=== PATIENT | female | born 1990 | race Caucasian/White ===

== ENCOUNTER 2024-02-26 15:23 | Inpatient (IN) ==
--- NOTE | 2024-02-26 16:10 | ED.ABDFE ---
HPI Time Seen Time Seen by Provider: 02/26/24 15:30 PCP Primary Care Physician: NFD Complaint Doctors Chief Complaint Comments: 33-year-old female presents for evaluation. Patient seen here in the ER yesterday for abdominal pain, worked up & treated by me. Patient was discharged yesterday afternoon, sent home with Carafate and Zofran, did well initially. Was up most of the night with diarrhea. Started Imodium today. Diarrhea remains black/green. Denies recent use of nonsteroidal medications. No history of peptic ulcer disease. Patient does not drink alcohol. Pain worsened today. Sharp pain across the upper abdomen, severe at times. Does not radiate. Nothing makes it better, nothing makes it worse.. Feeling somewhat dizzy, lightheaded. Has had previous cholecystectomy and a tubal ligation. Chief Complaint:: Pt c/o 3 days of intermittent pain across the upper abdomen described as sharp stabbing in nature. No alleviating or exacerbating factors noted. Pain is associated wtih nausea, vomiting, and diarrhea. Pt states that today the pain has been worse and is now like a tight squeezing band all the amarjit und her abdomen and back. Self Treatment fo Chief Complaint: Pt was seen in ED yesterday and was discharged home with Zofran, Carafate and Potassium which has not improved symp toms. COVID-19 Coronavirus risk:travel/contact w/high risk person: No Has patient experienced Coronavirus symptoms: No Reviewed Nurses Notes Review: Yes Source History Provided: Patient Mode of arrival Mode of Arrival: Ambulatory Timing Onset of Chief Complaint: 02/24/24 PMH PMH Past Medical History: No Past Surgical History: Yes Surgical History: Cholecystectomy Past Surgical History Comment: tubal ligation Family History History of Family Medical Conditions: Yes Family Medical History: Diabetes Mellitus and Cancer Social History Does patient currently use any type of tobacco product: No Have you used tobacco products in the last 12 months: No Type of Tobacco Use: None Does any household member use tobacco: No Alcohol Use: None Do you use any recreational Drugs:: No Lives With: Family Lives Where: Home Travel Risk Coronavirus risk:travel/contact w/high risk person: No Has patient experienced Coronavirus symptoms: No Infectious screening In the last 2 months have you had wt loss of >10#?: NO Have you had fever, night sweats or hemotysis?: No Have you traveled outside the country in the last 6 months?: No Isolation: Standard ROS Review of Systems Constitutional: Malaise and Weakness Eyes: No Symptoms Reported ENTM: No Symptoms Reported Respiratoy: No Symptoms Reported Cardiovascular: No Symptoms Reported Gastrointestinal/Abdominal: See HPI Genitourinary: No Symptoms Reported Neurological: Weakness Musculoskeletal: No Symptoms Reported Integumentary: No Symptoms Reported Psychiatric: No Symptoms Reported All Other Systems: Reviewed and Negative PE Vital Signs Vitals: Vital Signs Temperature 98.9 F Pulse Rate 94 Pulse Rate 98 Respiratory Rate 25 Respiratory Rate 20 Respiratory Rate 22 Blood Pressure 113/63 O2 Sat by Pulse Oximetry 96 General General Appearance: Alert and Other (Appears uncomfortable) Eyes Eye exam: PERRL and EOMI ENT ENT Exam: Mucous Membranes Moist Neck Neck Exam: Normal Inspection Respiratory Respiratory Exam: Normal Lung Sounds Bilat; negative Accessory Muscle Use or Respiratory Distress Cardiovascular Cardiovascular Exam: Regular Rate, Normal Rhythm and Normal Heart Sounds Abdominal Exam Abdominal Exam: Normal Bowel Sounds, Soft and Tenderness (Epigastric region greater than right upper quadrant/left upper quadrant. Has guarding associated with it.) Back Back Exam: Normal Inspection Extremeties Extremities Exam: Normal Inspection and Other (Good distal pulses of lower extremities.); negative Edema Neurologic Neurological Exam: Alert, Oriented X3 and CN II-XII Intact; negative Motor Sensory Deficit Skin Skin Exam: Warm and Dry COURSE Treatment Treatment: 33-year-old female with 4 days of nausea, vomiting, diarrhea. Was seen and treated here yesterday. Worsened this afternoon. Workup initiated. Patient given IV fluids, IV morphine/Zofran. Pt doing better, still with some epigastric discomfort. Labs show potassium be lower than yesterday, down to 2.5. Patient given IV fluids with potassium. CT scan of the abdomen pelvis performed. Radiologist question some right-sided colitis. Patient hurting mostly in the epigastric region. Requested a stool sample from the patient to look out for blood, stool culture, H. pylori. Recommend admitting patient for further control of her pain and potassium replacement. Presented to on-call physician, Dr. Bellamy, accepts the admission. Will consult with general surger y, Dr. Mendoza, for possible EGD tomorrow. Give clear fluids now, will keep n.p.o. after midnight. ROR Labs Reviewed Laboratory Results Reviewed?: Yes 02/26/24 15:55 02/26/24 15:55 Laboratory: WBC 9.0 X10^3/uL (3.6-10.0) 02/26/24 15:55 RBC 4.26 X10^6/uL (3.5-5.4) 02/26/24 15:55 Hgb 13.0 g/dL (12.0-16.0) 02/26/24 15:55 Hct 37.6 % (36.0-47.0) 02/26/24 15:55 MCV 88.5 fL (80.0-100.0) 02/26/24 15:55 MCH 30.4 pg (27.0-34.0) 02/26/24 15:55 MCHC 34.4 g/dL (33.0-35.0) 02/26/24 15:55 RDW 13.2 % (11.6-16.5) 02/26/24 15:55 Plt Count 213 X10^3/uL (150.0-450.0) 02/26/24 15:55 Plt Count Comment Adequate (ADEQUATE) 02/26/24 15:55 MPV 9.6 fL (7.4-11.0) 02/26/24 15:55 Neut % (Auto) 92.6 % (42.0-75.0) H 02/26/24 15:55 Lymph % (Auto) 4.6 % (21.0-51.0) L 02/26/24 15:55 [place] % (Auto) 2.2 % (0.0-13.0) 02/26/24 15:55 Eos % (Auto) 0.0 % (0.9-2.9) L 02/26/24 15:55 Baso % (Auto) 0.6 % (0.2-1.0) 02/26/24 15:55 Neut # (Auto) 8.3 x10^3/uL (2.2-4.8) H 02/26/24 15:55 Lymph # (Auto) 0.4 X10^3/uL (1.3-2.9) L 02/26/24 15:55 [place] # (Auto) 0.2 x10^3/uL (0.3-0.8) L 02/26/24 15:55 Eos # (Auto) 0.0 x10^3/uL (0.0-0.2) 02/26/24 15:55 Baso # (Auto) 0.1 X10^3/uL (0.0-0.1) 02/26/24 15:55 Absolute Nucleated RBC 0.0 /100WBC 02/26/24 15:55 Total Counted 100 02/26/24 15:55 Neutrophils % (Manual) 96 % (39-76) H 02/26/24 15:55 Lymphocytes % (Manual) 3 % (13-43) L 02/26/24 15:55 Monocytes % (Manual) 1 % (4-9) L 02/26/24 15:55 Plt Morphology Comment Normal (NORMAL) 02/26/24 15:55 RBC Morphology Normal (NORMAL) 02/26/24 15:55 Sodium 136 mmol/L (136-145) 02/26/24 15:55 Corrected Sodium TNP 02/26/24 15:55 Potassium 2.5 mmol/L (3.5-5.1) L* 02/26/24 15:55 Chloride 100 mmol/L (98-107) 02/26/24 15:55 Carbon Dioxide 21.1 mmol/L (21-32) 02/26/24 15:55 BUN 10 mg/dL (7-18) 02/26/24 15:55 Creatinine 0.79 mg/dL (0.55-1.02) 02/26/24 15:55 Est GFR (MDRD) Af Amer > 60 (>60) 02/26/24 15:55 Est GFR (MDRD) Non-Af > 60 (>60) 02/26/24 15:55 Glucose 99 mg/dL (65-99) 02/26/24 15:55 Calcium 8.8 mg/dL (8.5-10.1) 02/26/24 15:55 Corrected Calcium TNP 02/26/24 15:55 Total Bilirubin 0.70 mg/dL (0.2-1.0) 02/26/24 15:55 AST 28 Units/L (15-37) 02/26/24 15:55 ALT 30 Units/L (12-78) 02/26/24 15:55 Alkaline Phosphatase 66 Units/L (46-116) 02/26/24 15:55 Total Protein 7.3 g/dL (6.4-8.2) 02/26/24 15:55 Albumin 3.8 g/dL (3.4-5.0) 02/26/24 15:55 Globulin 3.5 g/dL (2.5-4.5) 02/26/24 15:55 Albumin/Globulin Ratio 1.1 Ratio (1.1-2.1) 02/26/24 15:55 Lipase 21 Units/L (16-77) 02/26/24 15:55 HCG, Qual Negative <10 mIU/mL 02/26/24 15:55 Potassium 2.5 XRAY XRAY Interpreted by: Radiologist X-ray Results: EXAM: ABDOMEN/PELVIS W/O CON HISTORY: upper abd pain, nausea, vomiting; COMPARISON: None. TECHNIQUE: Nonenhanced spiral CT imaging was performed through the abdomen and pelvis and axial, coronal, and sagittal CT images were generated. FINDINGS: The lung bases are clear without effusion. The heart size is normal. The liver is normal. The gallbladder has been removed. The pancreas, spleen, adrenal glands are normal. The kidneys are normal in size. There is no stone or hydronephrosis on either side. Urinary bladder is grossly unremarkable. The uterus is normal. Left ovary is normal. There appears to be a roughly 1.6 cm cyst in the right ovary. Stomach is grossly normal. Small bowel loops are normal. There is non-specific wall thickening of the right colon. There are non-specific radiodensities in the right side of the pelvis possibly in the cecum. Remainder of the colon is unremarkable. There is some trace free fluid in the pelvis. Bones are unremarkable. IMPRESSION: 1. Non-specific wall thickening in the cecum and right colon possibly due to colitis. 2. Non-specific radiodensity in the pelvis on the right side possibly within the cecum. If there is ongoing clinical concern, consider a follow-up CT scan with oral and IV contrast. THIS IS AN ELECTRONICALLY VERIFIED FINAL REPORT 02/26/2024 5:39 PM - Electronically signed by Chico Almeida MD Opioid Opioid Risk Tool Age ([place] box if 16-45): Yes History of Preadolescent Sexual Abuse: No Total: 1 Total Score Risk Category: Low Risk Copyright: Trell BERGMAN predicting aberrant behaviors Discharge Plan Diagnosis Discharge Problem: Acute hypokalemia, Gastroenteritis, Acute epigastric pain Discharge Plan Patient Disposition: 09 ADMITTED INPATIENT Condition: Stable Prescriptions: No Action ondansetron 4 mg tablet,disintegrating 4 mg translingual Q6H PRN (Reason: nausea and vomiting) 2 Days Qty: 8 1RF sucralfate 1 gram tablet 1 g PO QID 3 Days Qty: 12 0RF potassium chloride 20 mEq tablet extended release 20 meq PO BID 3 Days Qty: 6 0RF Health Concerns: Post Hospitalization: new medications and changes needed to prevent readmission or further decline. Pt educated and given instructions on all concerns. Plan of Treatment: Continue with present treatment and follow up plan. Pt is to keep follow up appointment as instructed and take medications as ordered. Orders to Discharge Patient Discharge Orders: Transfer (Routine); Ordered 02/26/24 Ordered By: Johnny De Oliveira Follow ups/Referrals Follow ups/Referrals: NFD,None [Primary Care Provider] - 3 days
[2024-02-26 16:33] LABS: BASOPHILS # (AUTO) 0.1 X10^3/uL (0.0-0.1); BASOPHILS % (AUTO) 0.6 % (0.2-1.0); HEMATOCRIT 37.6 % (36.0-47.0); LYMPHOCYTES # (AUTO) 0.4 X10^3/uL (1.3-2.9); LYMPHOCYTES % (AUTO) 4.6 % (21.0-51.0); MEAN CORPUSCULAR HEMOGLOBIN 30.4 pg (27.0-34.0); MEAN CORPUSCULAR HGB CONC 34.4 g/dL (33.0-35.0); MEAN CORPUSCULAR VOLUME 88.5 fL (80.0-100.0); MEAN PLATELET VOLUME 9.6 fL (7.4-11.0); MONOCYTES # (AUTO) 0.2 x10^3/uL (0.3-0.8); MONOCYTES % (AUTO) 2.2 % (0.0-13.0); NEUTROPHILS # (AUTO) 8.3 x10^3/uL (2.2-4.8); NEUTROPHILS % (AUTO) 92.6 % (42.0-75.0); PLATELET COUNT 213 X10^3/uL (150.0-450.0); RED BLOOD COUNT 4.26 X10^6/uL (3.5-5.4); RED CELL DISTRIBUTION WIDTH 13.2 % (11.6-16.5)
[2024-02-26] MEDS: MORPHINE SULFATE INJ 4 MG IVP ONE (16:38)
[2024-02-26] MEDS: ZOFRAN INJ 4 MG VIAL IVP ONE (16:39)
[2024-02-26] MEDS: NS 1,000 ML IV 1,000 ML IV ONE (16:39)
[2024-02-26 16:47] LABS: ALANINE AMINOTRANSFERASE 30 Units/L (12-78); ALBUMIN 3.8 g/dL (3.4-5.0); ALKALINE PHOSPHATASE 66 Units/L (46-116); ASPARTATE AMINO TRANSFERASE 28 Units/L (15-37); BLOOD UREA NITROGEN 10 mg/dL (7-18); CALCIUM 8.8 mg/dL (8.5-10.1); CARBON DIOXIDE 21.1 mmol/L (21-32); CHLORIDE 100 mmol/L (98-107); CREATININE 0.79 mg/dL (0.55-1.02); GLUCOSE 99 mg/dL (65-99); LIPASE 21 Units/L (16-77); SERUM PREGNANCY TEST, QUAL NEGATIVE <10 mIU/mL; SODIUM 136 mmol/L (136-145); TOTAL PROTEIN 7.3 g/dL (6.4-8.2); eGFR NON BLACK RACES > 60 (>60)
[2024-02-26 16:48] LABS: POTASSIUM 2.5 mmol/L (3.5-5.1)
[2024-02-26 17:42] LABS: PLATELET MORPHOLOGY COMMENT NORMAL (NORMAL)
--- NOTE | 2024-02-26 17:43 | CT ---
EXAM:ABDOMEN/PELVIS W/O CONHISTORY:upper abd pain, nausea, vomiting;COMPARISON:None.TECHNIQUE:Nonen hanced spiral CT imaging was performed through the abdomen and pelvis and axial, coronal, and sagittal CT images were generated.FINDINGS:The lung bases are clear without effusion. The heart size is normal. The liver is normal. The gallbladder has been removed. The pancreas, spleen, adrenal glands are normal. The kidneys are normal in size. There is no stone or hydronephrosis on either side. Urinary bladder is grossly unremarkable. The uterus is normal. Left ovary is normal. There appears to be a roughly 1.6 cm cyst in the right ovary. Stomach is grossly normal. Small bowel loops are normal. There is non-specific wall thickening of the right colon. There are non-specific radiodensities in the right side of the pelvis possibly in the cecum. Remainder of the colon is unremarkable. There is some trace free fluid in the pelvis. Bones are unremarkable.IMPRESSION:1. Non-specific wall thickening in the cecum and right colon possibly due to colitis.2. Non-specific radiodensity in the pelvis on the right side possibly within the cecum. If there is ongoing clinical concern, consider a follow-up CT scan with oral and IV contrast.THIS IS AN ELECTRONICALLY VERIFIED FINAL REPORT02/26/2024 5:39 PM - Electronically signed by Chico Almeida MD
[2024-02-26] MEDS ORDERED: NS + KCL 20 MEQ/L 1,000 ML IV ONE (17:57)
[2024-02-26] MEDS: NS + KCL 20 MEQ/L 1,000 ML IV ONE (18:03)
[2024-02-26] MEDS ORDERED: CONSULT PHARMACY - POTASSIUM & MAGNESIUM XX SCH (20:21)
[2024-02-26] MEDS ORDERED: ZOFRAN INJ 4 MG VIAL IVP PRN (20:21)
[2024-02-26] MEDS ORDERED: MORPHINE SULFATE INJ 4 MG IVP PRN (20:21)
[2024-02-26] MEDS: NS 250 ML IV 250 ML IV ONE (21:30)
[2024-02-26 21:43] LABS: BILIRUBIN,URINE NEGATIVE (NEGATIVE); BLOOD/HEMOGLOBIN,URINE 1+ (NEGATIVE); GLUCOSE, URINE NEGATIVE (NEGATIVE); KETONES,URINE 3+ (NEGATIVE); LEUKOCYTE ESTERASE ,URINE 1+ (NEGATIVE); NITRITES,URINE NEGATIVE (NEGATIVE); PROTEIN,URINE 2+ (NEGATIVE); UROBILINOGEN,URINE NORMAL (NORMAL)
[2024-02-26 21:47] LABS: APPEARANCE,URINE SLIGHTLY HAZY (CLEAR); BACTERIA,URINE TRACE /HPF (NEGATIVE); COLOR,URINE AMBER (YELLOW); HYALINE CASTS, URINE FEW /LPF (NEGATIVE); SQUAMOUS EPITHELIAL CELL,UR FEW /HPF (NEGATIVE)
[2024-02-26] MEDS: MAGNESIUM SULFATE 1 GRAM/100 mL PREMIX 1 G/100 ML BAG IV SCH (21:56)
[2024-02-26 22:26] VITALS: BMI 22.1
[2024-02-26] MEDS: K-RIDER 10 MEQ/100 ML WATER 10 MEQ/100 ML BAG IV SCH (23:02)
[2024-02-27] MEDS: TYLENOL 325 MG TAB PO PRN (00:05)
[2024-02-27 06:08] LABS: BASOPHILS % (AUTO) 0.4 % (0.2-1.0); EOSINOPHILS % (AUTO) 0.1 % (0.9-2.9); HEMATOCRIT 32.3 % (36.0-47.0); HEMOGLOBIN 11.1 g/dL (12.0-16.0); LYMPHOCYTES # (AUTO) 0.6 X10^3/uL (1.3-2.9); LYMPHOCYTES % (AUTO) 9.6 % (21.0-51.0); MEAN CORPUSCULAR HEMOGLOBIN 30.8 pg (27.0-34.0); MEAN CORPUSCULAR HGB CONC 34.5 g/dL (33.0-35.0); MEAN CORPUSCULAR VOLUME 89.3 fL (80.0-100.0); MEAN PLATELET VOLUME 9.7 fL (7.4-11.0); MONOCYTES # (AUTO) 0.4 x10^3/uL (0.3-0.8); MONOCYTES % (AUTO) 5.7 % (0.0-13.0); NEUTROPHILS # (AUTO) 5.3 x10^3/uL (2.2-4.8); NEUTROPHILS % (AUTO) 84.2 % (42.0-75.0); PLATELET COUNT 184 X10^3/uL (150.0-450.0); RED BLOOD COUNT 3.62 X10^6/uL (3.5-5.4); WHITE BLOOD COUNT 6.4 X10^3/uL (3.6-10.0)
[2024-02-27 06:29] LABS: ALANINE AMINOTRANSFERASE 143 Units/L (12-78); ALBUMIN 2.9 g/dL (3.4-5.0); ALKALINE PHOSPHATASE 94 Units/L (46-116); ASPARTATE AMINO TRANSFERASE 155 Units/L (15-37); BLOOD UREA NITROGEN 7 mg/dL (7-18); CALCIUM 7.5 mg/dL (8.5-10.1); CARBON DIOXIDE 22.4 mmol/L (21-32); CHLORIDE 104 mmol/L (98-107); COR CA(FOR HYPOALB) 8.4 mg/dL (8.5-10.1); GLUCOSE 101 mg/dL (65-99); MAGNESIUM 2.4 mg/dL (2.0-2.9); SODIUM 137 mmol/L (136-145); TOTAL PROTEIN 5.8 g/dL (6.4-8.2); eGFR NON BLACK RACES > 60 (>60)
[2024-02-27 06:35] LABS: POTASSIUM 2.8 mmol/L (3.5-5.1)
[2024-02-27] MEDS ORDERED: CONSULT PHARMACY - POTASSIUM & MAGNESIUM XX SCH (07:00)
[2024-02-27] MEDS: PROTONIX INJ 40 MG VIAL IVP SCH ×2 (08:10→09:03)
[2024-02-27] MEDS: K-RIDER 10 MEQ/100 ML WATER 10 MEQ/100 ML BAG IV SCH (08:10)
[2024-02-27] MEDS: POTASSIUM CHLORIDE INJ 40 MEQ VIAL 40 MEQ, POTASSIUM CHLORIDE INJ 20 MEQ VIAL 20 MEQ in... IV ONE (09:26)
[2024-02-27] MEDS: NS 1,000 ML IV 1,000 ML IV SCH (09:36)
[2024-02-27] MEDS: CIPRO IV 400 MG PREMIX* 400 MG/200 ML IV.SOLN. IV SCH (09:52)
[2024-02-27] MEDS ORDERED: FLAGYL IV PREMIX 500 MG BAG 500 MG/100 ML BAG IV SCH (10:00)
[2024-02-27 10:20] LABS: CRYPTOSPORIDIUM PARVUM ANTIGEN NEGATIVE (NEGATIVE); GIARDIA LAMBLIA ANTIGEN NEGATIVE (NEGATIVE)
[2024-02-27] MEDS: ZITHROMAX TAB 250 MG PO SCH (11:41)
[2024-02-28 06:08] LABS: BASOPHILS % (AUTO) 0.4 % (0.2-1.0); HEMATOCRIT 31.9 % (36.0-47.0); LYMPHOCYTES # (AUTO) 0.7 X10^3/uL (1.3-2.9); LYMPHOCYTES % (AUTO) 14.2 % (21.0-51.0); MEAN CORPUSCULAR HEMOGLOBIN 30.8 pg (27.0-34.0); MEAN CORPUSCULAR HGB CONC 34.6 g/dL (33.0-35.0); MEAN CORPUSCULAR VOLUME 89.1 fL (80.0-100.0); MEAN PLATELET VOLUME 10.6 fL (7.4-11.0); MONOCYTES # (AUTO) 0.4 x10^3/uL (0.3-0.8); MONOCYTES % (AUTO) 8.8 % (0.0-13.0); NEUTROPHILS # (AUTO) 3.5 x10^3/uL (2.2-4.8); NEUTROPHILS % (AUTO) 75.6 % (42.0-75.0); PLATELET COUNT 117 X10^3/uL (150.0-450.0); RED BLOOD COUNT 3.58 X10^6/uL (3.5-5.4); RED CELL DISTRIBUTION WIDTH 13.4 % (11.6-16.5); WHITE BLOOD COUNT 4.6 X10^3/uL (3.6-10.0)
[2024-02-28 06:21] LABS: ALANINE AMINOTRANSFERASE 113 Units/L (12-78); ALBUMIN 2.8 g/dL (3.4-5.0); ALKALINE PHOSPHATASE 97 Units/L (46-116); ASPARTATE AMINO TRANSFERASE 57 Units/L (15-37); BLOOD UREA NITROGEN 5 mg/dL (7-18); CALCIUM 7.4 mg/dL (8.5-10.1); CARBON DIOXIDE 20.3 mmol/L (21-32); CHLORIDE 108 mmol/L (98-107); COR CA(FOR HYPOALB) 8.4 mg/dL (8.5-10.1); CREATININE 0.47 mg/dL (0.55-1.02); GLUCOSE 98 mg/dL (65-99); POTASSIUM 3.5 mmol/L (3.5-5.1); SODIUM 138 mmol/L (136-145); TOTAL PROTEIN 5.6 g/dL (6.4-8.2); eGFR NON BLACK RACES > 60 (>60)
[2024-02-28] MEDS ORDERED: CONSULT PHARMACY - POTASSIUM & MAGNESIUM XX SCH (07:00)
--- NOTE | 2024-02-28 07:25 | DR.H&P ---
H&P History & Physical for Day of: H&P Date: 02/27/24 Chief Complaint Chief Complaint: abdominal pain Nausea, vomiting, diarrhea History of Present Illness History of Present Illness: Pt is a 33 year old female with no past medical history presenting with abdominal pain, nausea, vomiting, and diarrhea that started on Saturday. She reports that symptoms suddenly worsened yesterday. Having some fever and chills. Labs/imaging: Wbc 6.4, Hgb 11.1, Plt 184, Na 137, K 2.8, Creatinine 0.60, Glucose 101, LA 0.7, AST 155, ALT 143, ALP 94. UA negative, Blood culture pending, CT abdomen and pelvis was obtained that revealed: Non-specific wall thickening in the cecum and right colon possibly due to colitis. Pt admitted for colitis. General surgery consulted-Dr Mendoza, will follow up recommendations. Will start on IV antibiotics Cipro and Flagyl. Will need to obtained stool cultures. Keep NPO, continue IVF NS@150ml/h, IV morphine prn for pain control, and IV protonic 40mg BID. Replete electrolytes per protocol. Continue to closely monitor and follow up labs/imaging. Past Surgical History Surgical History: Cholecystectomy and [employer] Surgery Family History Family Medical History: Diabetes Mellitus and Cancer Social History Does patient currently use any type of tobacco product: No Have you used tobacco products in the last 12 months: No Type of Tobacco Use: None Does any household member use tobacco: No Alcohol Use: None Drug Use: None Allergies Allergies Allergy/AdvReac Type Severity Reaction Status Date / Time No Known Drug Allergies Allergy Unknown Verified 02/26/24 15:40 Labs 02/28/24 05:49 02/28/24 05:49 Labs: 02/27/24 09:07 Stool - Final Laboratory WBC 4.6 X10^3/uL (3.6-10.0) 02/28/24 05:49 RBC 3.58 X10^6/uL (3.5-5.4) 02/28/24 05:49 Hgb 11.0 g/dL (12.0-16.0) L 02/28/24 05:49 Hct 31.9 % (36.0-47.0) L 02/28/24 05:49 MCV 89.1 fL (80.0-100.0) 02/28/24 05:49 MCH 30.8 pg (27.0-34.0) 02/28/24 05:49 MCHC 34.6 g/dL (33.0-35.0) 02/28/24 05:49 RDW 13.4 % (11.6-16.5) 02/28/24 05:49 Plt Count 117 X10^3/uL (150.0-450.0) L 02/28/24 05:49 Plt Count Comment Adequate (ADEQUATE) 02/26/24 15:55 MPV 10.6 fL (7.4-11.0) 02/28/24 05:49 Neut % (Auto) 75.6 % (42.0-75.0) H 02/28/24 05:49 Lymph % (Auto) 14.2 % (21.0-51.0) L 02/28/24 05:49 [place] % (Auto) 8.8 % (0.0-13.0) 02/28/24 05:49 Eos % (Auto) 1.0 % (0.9-2.9) 02/28/24 05:49 Baso % (Auto) 0.4 % (0.2-1.0) 02/28/24 05:49 Neut # (Auto) 3.5 x10^3/uL (2.2-4.8) 02/28/24 05:49 Lymph # (Auto) 0.7 X10^3/uL (1.3-2.9) L 02/28/24 05:49 [place] # (Auto) 0.4 x10^3/uL (0.3-0.8) 02/28/24 05:49 Eos # (Auto) 0.0 x10^3/uL (0.0-0.2) 02/28/24 05:49 Baso # (Auto) 0.0 X10^3/uL (0.0-0.1) 02/28/24 05:49 Absolute Nucleated RBC 0.2 /100WBC 02/28/24 05:49 Total Counted 100 02/26/24 15:55 Neutrophils % (Manual) 96 % (39-76) H 02/26/24 15:55 Lymphocytes % (Manual) 3 % (13-43) L 02/26/24 15:55 Monocytes % (Manual) 1 % (4-9) L 02/26/24 15:55 Plt Morphology Comment Normal (NORMAL) 02/26/24 15:55 RBC Morphology Normal (NORMAL) 02/26/24 15:55 Sodium 138 mmol/L (136-145) 02/28/24 05:49 Corrected Sodium TNP 02/28/24 05:49 Potassium 3.5 mmol/L (3.5-5.1) 02/28/24 05:49 Chloride 108 mmol/L (98-107) H 02/28/24 05:49 Carbon Dioxide 20.3 mmol/L (21-32) L 02/28/24 05:49 BUN 5 mg/dL (7-18) L 02/28/24 05:49 Creatinine 0.47 mg/dL (0.55-1.02) L 02/28/24 05:49 Est GFR (MDRD) Af Amer > 60 (>60) 02/28/24 05:49 Est GFR (MDRD) Non-Af > 60 (>60) 02/28/24 05:49 Glucose 98 mg/dL (65-99) 02/28/24 05:49 Lactic Acid 0.7 mmol/L (0.4-2.0) 02/27/24 07:30 Calcium 7.4 mg/dL (8.5-10.1) L 02/28/24 05:49 Corrected Calcium 8.4 mg/dL (8.5-10.1) L 02/28/24 05:49 Magnesium 2.4 mg/dL (2.0-2.9) 02/27/24 05:05 Total Bilirubin 0.20 mg/dL (0.2-1.0) 02/28/24 05:49 AST 57 Units/L (15-37) H 02/28/24 05:49 ALT 113 Units/L (12-78) H 02/28/24 05:49 Alkaline Phosphatase 97 Units/L (46-116) 02/28/24 05:49 Total Protein 5.6 g/dL (6.4-8.2) L 02/28/24 05:49 Albumin 2.8 g/dL (3.4-5.0) L 02/28/24 05:49 Globulin 2.8 g/dL (2.5-4.5) 02/28/24 05:49 Albumin/Globulin Ratio 1.0 Ratio (1.1-2.1) L 02/28/24 05:49 Lipase 21 Units/L (16-77) 02/26/24 15:55 HCG, Qual Negative <10 mIU/mL 02/26/24 15:55 Specimen Type Clean catch urine 02/26/24 21:32 Urine Color Sherry (YELLOW) 02/26/24 21:32 Urine Appearance Slightly hazy (CLEAR) 02/26/24 21:32 Urine pH 5.0 (5.0 - 8.0) 02/26/24 21:32 Ur Specific [place] 1.025 (1.000-1.030) 02/26/24 21:32 Urine Protein 2+ (NEGATIVE) 02/26/24 21:32 Urine Glucose (UA) Negative (NEGATIVE) 02/26/24 21:32 Urine Ketones 3+ (NEGATIVE) 02/26/24 21:32 Urine Blood 1+ (NEGATIVE) 02/26/24 21:32 Urine Nitrite Negative (NEGATIVE) 02/26/24 21:32 Urine Bilirubin Negative (NEGATIVE) 02/26/24 21:32 Urine Urobilinogen Normal (NORMAL) 02/26/24 21:32 Ur Leukocyte Esterase 1+ (NEGATIVE) 02/26/24 21:32 Urine RBC 3-5 /HPF (0-3) A 02/26/24 21:32 Urine WBC 3-5 /HPF (0-5) 02/26/24 21:32 Ur Squamous Epith Cells Few /HPF (NEGATIVE) 02/26/24 21:32 Amorphous Sediment 1+ /HPF (NEGATIVE) 02/26/24 21:32 Urine Bacteria Trace /HPF (NEGATIVE) 02/26/24 21:32 Hyaline Casts Few /LPF (NEGATIVE) 02/26/24 21:32 Urine Mucus Moderate /HPF (NEGATIVE) 02/26/24 21:32 Ur Culture Indicated? No/not indicated 02/26/24 21:32 Stl Occult Blood (IFOB) Positive (NEGATIVE) A 02/27/24 09:07 Stool for White Cells Positive (NEGATIVE) A 02/27/24 09:07 Stl C. diff Tox B Gene Negative (NEGATIVE) 02/27/24 09:07 Stl C. diff [id number] Presumptive negative (NEGATIVE) 02/27/24 09:07 Cryptosporid parvum Ag Negative (NEGATIVE) 02/27/24 09:07 Giardia lamblia Ag Negative (NEGATIVE) 02/27/24 09:07 Review of Systems Constitutional: Fever, Chills and Weakness Eyes: No Symptoms Reported ENT: No Symptoms Reported Respiratory: No Symptoms Reported Cardiovascular: No Symptoms Reported Gastrointestinal: Nausea, Vomiting, Abdominal Pain and Diarrhea Genitourinary: No Symptoms Reported Musculoskeletal: No Symptoms Reported Skin: No Symptoms Reported Neurological: No Symptoms Reported Physical Exam Vital Signs: Vital Signs Temperature 99.3 F Temperature 98.6 F Pulse Rate [Left Radial] 68 Pulse Rate [Left Radial] 67 Respiratory Rate 18 Respiratory Rate 21 Respiratory Rate 18 Respiratory Rate 18 Blood Pressure [Right Arm] 106/70 Blood Pressure [Right Arm] 87/52 O2 Sat by Pulse Oximetry 98 O2 Sat by Pulse Oximetry 98 Oriented: Normal Eyes: Normal Ear: Normal Nose: Normal Throat: Normal Respiratory: Clear Throughout Cardiovascular: Normal : Normal Auscultation: Bowel Sounds: Normal Palpation: Normal Tenderness: Epigastric Skin: Normal Musculoskeletal: Normal Psychiatric: Normal Mood Description: Calm and Appropriate Affect: Normal Speech Pattern: Clear and Appropriate Assessment/Plan (1) Colitis: Status: Acute Plan: IVF, IV cipro and flagyl Stool cultures pending (2) Gastroenteritis: Status: Acute (3) Acute hypokalemia: Status: Acute Plan: replete per protocol Review H&P Reviewed: Yes Patient was examined?: Yes
[2024-02-28] MEDS: K-RIDER 10 MEQ/100 ML WATER 10 MEQ/100 ML BAG IV SCH (08:35)
--- NOTE | 2024-02-28 22:12 | PCM.PROG ---
Progress Note Progress Note for Day of Date of Exam: 02/28/24 Subjective Subjective: Pt is a 33 year old female with no past medical history admitted for Campylobacter infection after stool cultures were determined to be positive. She reports feeling better today. No acute events overnight. Labs/imaging: Wbc 4.6, Hgb 11, Plt 117, Na 138, K 3.5, Creatinine 0.47, Glucose 98, AST 57, ALT 113, ALP 97. Blood culture pending, Stool culture positive for campylobacter. Pt admitted for colitis due to campylobacter. General surgery consulted-Dr Mendoza and is following. We discontinued IV antibiotics Cipro and Flagyl and added oral azithromycin. Will advance diet as tolerated to soft diet. Continue IVF NS@150ml/h, IV morphine prn for pain control, and IV protonic 40mg BID. Replete electrolytes per protocol. Otherwise, continue with current treatment plan. Continue to closely monitor and follow up labs/imaging. Past Medical Family Social History Allergies: Allergies No Known Drug Allergies Allergy (Unknown, Verified 02/26/24 15:40) Onset Date: 10/26/2021 Review of Systems ROS changes noted: see HPI Vital Signs and I&O's Vital Signs: Vital Signs Temperature 98.4 F Temperature 98.4 F Pulse Rate [Left Radial] 53 Pulse Rate [Left Radial] 72 Respiratory Rate 20 Respiratory Rate 18 Blood Pressure [Right Arm] 102/69 Blood Pressure [Right Arm] 103/60 O2 Sat by Pulse Oximetry 100 O2 Sat by Pulse Oximetry 99 Intake and Output: Intake & Output 02/25/24 02/26/24 02/27/24 02/28/24 23:59 23:59 23:59 23:59 Intake Total 900 / 900 2276 / 2276 3860 / 3860 Output Total Balance 900 / 900 2251 / 2251 3860 / 3860 Physical Exam Oriented: Normal Eyes: Normal Ear: Normal Nose: Normal Throat: Normal Cardiovascular: Normal : Normal Auscultation: Bowel Sounds: Normal Palpation: Normal Tenderness: Epigastric Skin: Normal Musculoskeletal: Normal Psychiatric: Normal Mood Description: Calm and Appropriate Affect: Normal Speech Pattern: Clear and Appropriate Laboratory and Diagnostics 02/28/24 05:49 02/28/24 05:49 Labs: 02/26/24 21:05 Blood Blood Culture - Preliminary 02/26/24 21:00 Blood Blood Culture - Preliminary 02/27/24 09:07 Stool Stool Culture - Preliminary 02/27/24 09:07 Stool - Final Laboratory WBC 4.6 X10^3/uL (3.6-10.0) 02/28/24 05:49 RBC 3.58 X10^6/uL (3.5-5.4) 02/28/24 05:49 Hgb 11.0 g/dL (12.0-16.0) L 02/28/24 05:49 Hct 31.9 % (36.0-47.0) L 02/28/24 05:49 MCV 89.1 fL (80.0-100.0) 02/28/24 05:49 MCH 30.8 pg (27.0-34.0) 02/28/24 05:49 MCHC 34.6 g/dL (33.0-35.0) 02/28/24 05:49 RDW 13.4 % (11.6-16.5) 02/28/24 05:49 Plt Count 117 X10^3/uL (150.0-450.0) L 02/28/24 05:49 Plt Count Comment Adequate (ADEQUATE) 02/26/24 15:55 MPV 10.6 fL (7.4-11.0) 02/28/24 05:49 Neut % (Auto) 75.6 % (42.0-75.0) H 02/28/24 05:49 Lymph % (Auto) 14.2 % (21.0-51.0) L 02/28/24 05:49 [place] % (Auto) 8.8 % (0.0-13.0) 02/28/24 05:49 Eos % (Auto) 1.0 % (0.9-2.9) 02/28/24 05:49 Baso % (Auto) 0.4 % (0.2-1.0) 02/28/24 05:49 Neut # (Auto) 3.5 x10^3/uL (2.2-4.8) 02/28/24 05:49 Lymph # (Auto) 0.7 X10^3/uL (1.3-2.9) L 02/28/24 05:49 [place] # (Auto) 0.4 x10^3/uL (0.3-0.8) 02/28/24 05:49 Eos # (Auto) 0.0 x10^3/uL (0.0-0.2) 02/28/24 05:49 Baso # (Auto) 0.0 X10^3/uL (0.0-0.1) 02/28/24 05:49 Absolute Nucleated RBC 0.2 /100WBC 02/28/24 05:49 Total Counted 100 02/26/24 15:55 Neutrophils % (Manual) 96 % (39-76) H 02/26/24 15:55 Lymphocytes % (Manual) 3 % (13-43) L 02/26/24 15:55 Monocytes % (Manual) 1 % (4-9) L 02/26/24 15:55 Plt Morphology Comment Normal (NORMAL) 02/26/24 15:55 RBC Morphology Normal (NORMAL) 02/26/24 15:55 Sodium 138 mmol/L (136-145) 02/28/24 05:49 Corrected Sodium TNP 02/28/24 05:49 Potassium 3.5 mmol/L (3.5-5.1) 02/28/24 05:49 Chloride 108 mmol/L (98-107) H 02/28/24 05:49 Carbon Dioxide 20.3 mmol/L (21-32) L 02/28/24 05:49 BUN 5 mg/dL (7-18) L 02/28/24 05:49 Creatinine 0.47 mg/dL (0.55-1.02) L 02/28/24 05:49 Est GFR (MDRD) Af Amer > 60 (>60) 02/28/24 05:49 Est GFR (MDRD) Non-Af > 60 (>60) 02/28/24 05:49 Glucose 98 mg/dL (65-99) 02/28/24 05:49 Lactic Acid 0.7 mmol/L (0.4-2.0) 02/27/24 07:30 Calcium 7.4 mg/dL (8.5-10.1) L 02/28/24 05:49 Corrected Calcium 8.4 mg/dL (8.5-10.1) L 02/28/24 05:49 Magnesium 2.4 mg/dL (2.0-2.9) 02/27/24 05:05 Total Bilirubin 0.20 mg/dL (0.2-1.0) 02/28/24 05:49 AST 57 Units/L (15-37) H 02/28/24 05:49 ALT 113 Units/L (12-78) H 02/28/24 05:49 Alkaline Phosphatase 97 Units/L (46-116) 02/28/24 05:49 Total Protein 5.6 g/dL (6.4-8.2) L 02/28/24 05:49 Albumin 2.8 g/dL (3.4-5.0) L 02/28/24 05:49 Globulin 2.8 g/dL (2.5-4.5) 02/28/24 05:49 Albumin/Globulin Ratio 1.0 Ratio (1.1-2.1) L 02/28/24 05:49 Lipase 21 Units/L (16-77) 02/26/24 15:55 HCG, Qual Negative <10 mIU/mL 02/26/24 15:55 Specimen Type Clean catch urine 02/26/24 21:32 Urine Color Sherry (YELLOW) 02/26/24 21:32 Urine Appearance Slightly hazy (CLEAR) 02/26/24 21:32 Urine pH 5.0 (5.0 - 8.0) 02/26/24 21:32 Ur Specific [place] 1.025 (1.000-1.030) 02/26/24 21:32 Urine Protein 2+ (NEGATIVE) 02/26/24 21:32 Urine Glucose (UA) Negative (NEGATIVE) 02/26/24 21:32 Urine Ketones 3+ (NEGATIVE) 02/26/24 21:32 Urine Blood 1+ (NEGATIVE) 02/26/24 21:32 Urine Nitrite Negative (NEGATIVE) 02/26/24 21:32 Urine Bilirubin Negative (NEGATIVE) 02/26/24 21:32 Urine Urobilinogen Normal (NORMAL) 02/26/24 21:32 Ur Leukocyte Esterase 1+ (NEGATIVE) 02/26/24 21:32 Urine RBC 3-5 /HPF (0-3) A 02/26/24 21:32 Urine WBC 3-5 /HPF (0-5) 02/26/24 21:32 Ur Squamous Epith Cells Few /HPF (NEGATIVE) 02/26/24 21:32 Amorphous Sediment 1+ /HPF (NEGATIVE) 02/26/24 21:32 Urine Bacteria Trace /HPF (NEGATIVE) 02/26/24 21:32 Hyaline Casts Few /LPF (NEGATIVE) 02/26/24 21:32 Urine Mucus Moderate /HPF (NEGATIVE) 02/26/24 21:32 Ur Culture Indicated? No/not indicated 02/26/24 21:32 Stl Occult Blood (IFOB) Positive (NEGATIVE) A 02/27/24 09:07 Stool for White Cells Positive (NEGATIVE) A 02/27/24 09:07 Stl C. diff Tox B Gene Negative (NEGATIVE) 02/27/24 09:07 Stl C. diff [id number] Presumptive negative (NEGATIVE) 02/27/24 09:07 Cryptosporid parvum Ag Negative (NEGATIVE) 02/27/24 09:07 Giardia lamblia Ag Negative (NEGATIVE) 02/27/24 09:07 Plan (1) Colitis: Status: Acute Plan: IVF, IV cipro and flagyl Stool cultures pending (2) Gastroenteritis: Status: Acute (3) Acute hypokalemia: Status: Acute Plan: replete per protocol
[2024-02-29 05:05] VITALS: TEMP 98.3
[2024-02-29 06:20] LABS: BASOPHILS % (AUTO) 0.4 % (0.2-1.0); EOSINOPHILS # (AUTO) 0.1 x10^3/uL (0.0-0.2); EOSINOPHILS % (AUTO) 2.5 % (0.9-2.9); HEMATOCRIT 29.5 % (36.0-47.0); HEMOGLOBIN 10.2 g/dL (12.0-16.0); LYMPHOCYTES # (AUTO) 1.1 X10^3/uL (1.3-2.9); LYMPHOCYTES % (AUTO) 24.5 % (21.0-51.0); MEAN CORPUSCULAR HEMOGLOBIN 30.9 pg (27.0-34.0); MEAN CORPUSCULAR HGB CONC 34.7 g/dL (33.0-35.0); MEAN CORPUSCULAR VOLUME 89.1 fL (80.0-100.0); MEAN PLATELET VOLUME 9.8 fL (7.4-11.0); MONOCYTES # (AUTO) 0.4 x10^3/uL (0.3-0.8); MONOCYTES % (AUTO) 8.9 % (0.0-13.0); NEUTROPHILS # (AUTO) 2.8 x10^3/uL (2.2-4.8); NEUTROPHILS % (AUTO) 63.7 % (42.0-75.0); PLATELET COUNT 154 X10^3/uL (150.0-450.0); RED BLOOD COUNT 3.31 X10^6/uL (3.5-5.4); RED CELL DISTRIBUTION WIDTH 13.5 % (11.6-16.5); WHITE BLOOD COUNT 4.4 X10^3/uL (3.6-10.0)
[2024-02-29 06:23] LABS: ALANINE AMINOTRANSFERASE 78 Units/L (12-78); ALBUMIN 2.4 g/dL (3.4-5.0); ALKALINE PHOSPHATASE 88 Units/L (46-116); ASPARTATE AMINO TRANSFERASE 24 Units/L (15-37); BLOOD UREA NITROGEN 3 mg/dL (7-18); CALCIUM 7.5 mg/dL (8.5-10.1); CARBON DIOXIDE 21.4 mmol/L (21-32); CHLORIDE 110 mmol/L (98-107); COR CA(FOR HYPOALB) 8.8 mg/dL (8.5-10.1); CREATININE 0.44 mg/dL (0.55-1.02); GLUCOSE 104 mg/dL (65-99); MAGNESIUM 1.8 mg/dL (2.0-2.9); POTASSIUM 3.3 mmol/L (3.5-5.1); SODIUM 140 mmol/L (136-145); TOTAL PROTEIN 5.2 g/dL (6.4-8.2); eGFR NON BLACK RACES > 60 (>60)
[2024-02-29] MEDS ORDERED: CONSULT PHARMACY - POTASSIUM & MAGNESIUM XX SCH ×2 (07:00)
[2024-02-29] MEDS: MAG-OX TAB PO SCH (08:18)
[2024-02-29] MEDS: KLOR-CON PO SCH (08:18)
[2024-02-29 09:16] VITALS: BP 104/70; PULSE 73; RESP 18; O2SAT 100
--- NOTE | 2024-02-29 22:16 | PCM.DCPLAN ---
DISCHARGE SUMMARY Admission Date Date of Admission: 02/26/24 Discharge Date Discharge Date: 02/29/24 Admission Diagnoses (1) Colitis: Status: Acute (2) Gastroenteritis: Status: Acute (3) Acute hypokalemia: Status: Acute Discharge Diagnoses Discharge Diagnosis: 1. Food poisoning secondary to Campylobacter jejuni 2. For possible secondary to Salmonella species 3. Colitis Discharge Medications Discharge Medications: Home Medication List azithromycin 500 mg tablet (Zithromax) 500 mg PO ONCE #2 tabs 02/29/24 [Rx] sulfamethoxazole 800 mg-trimethoprim 160 mg tablet (Bactrim DS) 1 tab PO Q12H #20 tabs 02/29/24 [Rx] Prescriptions: azithromycin [Zithromax] Nasir oMntilla sulfamethoxazole-trimethoprim [Bactrim DS] Nasir [place] Hospital Course Latest Lab Results: Laboratory Last Values WBC 4.4 X10^3/uL (3.6-10.0) 02/29/24 05:20 RBC 3.31 X10^6/uL (3.5-5.4) L 02/29/24 05:20 Hgb 10.2 g/dL (12.0-16.0) L 02/29/24 05:20 Hct 29.5 % (36.0-47.0) L 02/29/24 05:20 MCV 89.1 fL (80.0-100.0) 02/29/24 05:20 MCH 30.9 pg (27.0-34.0) 02/29/24 05:20 MCHC 34.7 g/dL (33.0-35.0) 02/29/24 05:20 RDW 13.5 % (11.6-16.5) 02/29/24 05:20 Plt Count 154 X10^3/uL (150.0-450.0) 02/29/24 05:20 Plt Count Comment Adequate (ADEQUATE) 02/26/24 15:55 MPV 9.8 fL (7.4-11.0) 02/29/24 05:20 Neut % (Auto) 63.7 % (42.0-75.0) 02/29/24 05:20 Lymph % (Auto) 24.5 % (21.0-51.0) 02/29/24 05:20 [place] % (Auto) 8.9 % (0.0-13.0) 02/29/24 05:20 Eos % (Auto) 2.5 % (0.9-2.9) 02/29/24 05:20 Baso % (Auto) 0.4 % (0.2-1.0) 02/29/24 05:20 Neut # (Auto) 2.8 x10^3/uL (2.2-4.8) 02/29/24 05:20 Lymph # (Auto) 1.1 X10^3/uL (1.3-2.9) L 02/29/24 05:20 [place] # (Auto) 0.4 x10^3/uL (0.3-0.8) 02/29/24 05:20 Eos # (Auto) 0.1 x10^3/uL (0.0-0.2) 02/29/24 05:20 Baso # (Auto) 0.0 X10^3/uL (0.0-0.1) 02/29/24 05:20 Absolute Nucleated RBC 0.1 /100WBC 02/29/24 05:20 Total Counted 100 02/26/24 15:55 Neutrophils % (Manual) 96 % (39-76) H 02/26/24 15:55 Lymphocytes % (Manual) 3 % (13-43) L 02/26/24 15:55 Monocytes % (Manual) 1 % (4-9) L 02/26/24 15:55 Plt Morphology Comment Normal (NORMAL) 02/26/24 15:55 RBC Morphology Normal (NORMAL) 02/26/24 15:55 Sodium 140 mmol/L (136-145) 02/29/24 05:20 Corrected Sodium TNP 02/29/24 05:20 Potassium 3.3 mmol/L (3.5-5.1) L 02/29/24 05:20 Chloride 110 mmol/L (98-107) H 02/29/24 05:20 Carbon Dioxide 21.4 mmol/L (21-32) 02/29/24 05:20 BUN 3 mg/dL (7-18) L 02/29/24 05:20 Creatinine 0.44 mg/dL (0.55-1.02) L 02/29/24 05:20 Est GFR (MDRD) Af Amer > 60 (>60) 02/29/24 05:20 Est GFR (MDRD) Non-Af > 60 (>60) 02/29/24 05:20 Glucose 104 mg/dL (65-99) H 02/29/24 05:20 Lactic Acid 0.7 mmol/L (0.4-2.0) 02/27/24 07:30 Calcium 7.5 mg/dL (8.5-10.1) L 02/29/24 05:20 Corrected Calcium 8.8 mg/dL (8.5-10.1) 02/29/24 05:20 Magnesium 1.8 mg/dL (2.0-2.9) L 02/29/24 05:20 Total Bilirubin 0.10 mg/dL (0.2-1.0) L 02/29/24 05:20 AST 24 Units/L (15-37) 02/29/24 05:20 ALT 78 Units/L (12-78) 02/29/24 05:20 Alkaline Phosphatase 88 Units/L (46-116) 02/29/24 05:20 Total Protein 5.2 g/dL (6.4-8.2) L 02/29/24 05:20 Albumin 2.4 g/dL (3.4-5.0) L 02/29/24 05:20 Globulin 2.8 g/dL (2.5-4.5) 02/29/24 05:20 Albumin/Globulin Ratio 0.9 Ratio (1.1-2.1) L 02/29/24 05:20 Lipase 21 Units/L (16-77) 02/26/24 15:55 HCG, Qual Negative <10 mIU/mL 02/26/24 15:55 Specimen Type Clean catch urine 02/26/24 21:32 Urine Color Sherry (YELLOW) 02/26/24 21:32 Urine Appearance Slightly hazy (CLEAR) 02/26/24 21:32 Urine pH 5.0 (5.0 - 8.0) 02/26/24 21:32 Ur Specific [place] 1.025 (1.000-1.030) 02/26/24 21:32 Urine Protein 2+ (NEGATIVE) 02/26/24 21:32 Urine Glucose (UA) Negative (NEGATIVE) 02/26/24 21:32 Urine Ketones 3+ (NEGATIVE) 02/26/24 21:32 Urine Blood 1+ (NEGATIVE) 02/26/24 21:32 Urine Nitrite Negative (NEGATIVE) 02/26/24 21:32 Urine Bilirubin Negative (NEGATIVE) 02/26/24 21:32 Urine Urobilinogen Normal (NORMAL) 02/26/24 21:32 Ur Leukocyte Esterase 1+ (NEGATIVE) 02/26/24 21:32 Urine RBC 3-5 /HPF (0-3) A 02/26/24 21:32 Urine WBC 3-5 /HPF (0-5) 02/26/24 21:32 Ur Squamous Epith Cells Few /HPF (NEGATIVE) 02/26/24 21:32 Amorphous Sediment 1+ /HPF (NEGATIVE) 02/26/24 21:32 Urine Bacteria Trace /HPF (NEGATIVE) 02/26/24 21:32 Hyaline Casts Few /LPF (NEGATIVE) 02/26/24 21:32 Urine Mucus Moderate /HPF (NEGATIVE) 02/26/24 21:32 Ur Culture Indicated? No/not indicated 02/26/24 21:32 Stl Occult Blood (IFOB) Positive (NEGATIVE) A 02/27/24 09:07 Stool for White Cells Positive (NEGATIVE) A 02/27/24 09:07 Stl C. diff Tox B Gene Negative (NEGATIVE) 02/27/24 09:07 Stl C. diff [id number] Presumptive negative (NEGATIVE) 02/27/24 09:07 Cryptosporid parvum Ag Negative (NEGATIVE) 02/27/24 09:07 Giardia lamblia Ag Negative (NEGATIVE) 02/27/24 09:07 Hospital Course: Pt is a 33 year old female with no past medical history presenting with abdominal pain, nausea, vomiting, and diarrhea that started on Saturday. She reports that symptoms suddenly worsened yesterday. Having some fever and chills. Labs/imaging: Wbc 6.4, Hgb 11.1, Plt 184, Na 137, K 2.8, Creatinine 0.60, Glucose 101, LA 0.7, AST 155, ALT 143, ALP 94. UA negative, Blood culture pending, CT abdomen and pelvis was obtained that revealed: Non-specific wall thickening in the cecum and right colon possibly due to colitis. Pt admitted for colitis. General surgery consulted-Dr Mendoza, will follow up recommendations. Will start on IV antibiotics Cipro and Flagyl. Will need to obtained stool cultures. Keep NPO, continue IVF NS@150ml/h, IV morphine prn for pain control, and IV protonic 40mg BID. Replete electrolytes per protocol. Continue to closely monitor and follow up labs/imaging. By the second hospital day the patient was feeling better. General surgery was consulted however they recommend IV antibiotics. The patient's stool culture came back and it was positive for Campylobacter jejuni. She was started on oral azithromycin. By the next mornin g she was feeling much better. Since the patient was doing better and was able to keep down her medicine and eat. We decided to discharge her home. Just before discharge we got another stool culture back and it was positive for Salmonella species. This stool culture shows that the Salmonella is sensitive to sulfa drugs. We will discharge her on oral azithromycin 500 mg p.o. daily x 2 more days and we will will discharge her on Bactrim DS 1 p.o. twice daily x 14 days. The patient will be discharged home in stable condition. We will have her follow-up with Dr. Bellamy within the week to make sure she is getting better. The patient will also be following up with general surgeon Dr. Welch because she did have a positive Hemoccult but I think this is secondary to her current bout of food poisoning/colitis. She is told that if she has any problems prior to follow-up to call Dr. Lee's office to try to get in sooner if she is unable to get in to go to the emergency department for further evaluation and treatment. The patient understands this.
== END 2024-02-29 11:53 | disposition home or self-care (01) | DRG 373 ==
LOC: MED/SURG 15:23 → ER 15:23 → OBSVTOIN 18:28 → MED/SURG 20:09
PROVIDERS: ADMIT Family Medicine; ATTEND Family Medicine
DX: A04.5 Campylobacter enteritis; E87.6 Hypokalemia; A02.0 Salmonella enteritis; R11.2 Nausea with vomiting, unspecified; E83.42 Hypomagnesemia; R10.13 Epigastric pain